=== PATIENT | female | born 1960 | race Caucasian/White ===

== ENCOUNTER → 2016-11-05 | Outpatient (REF) | payer OTHER ==
[~2016-11-05] MED LIST: AMIT24CA5 PO; BACL-67 PO; BENA25CA2 PO; BENA25TA4 PO; CALC600T21 PO; CELE20TA PO; DESYREL PO; DICL13PA TD; DOCU10CA PO; GABA-283 PO; HYDR-3713 PO; MAXA5TAB11 PO; MIRA3350 PO; MULTCAP PO; MYCOSTATIN SS; NEUR300C PO; NORCOTAB PO; TOPA100T8 PO; TRAZ50TA4 PO; VITA10002 PO; ZOFR4TAB3 PO; ZOFR8TAB PO; [UNRECOGNIZED DRUG - CODE] PO; [UNRECOGNIZED DRUG - OTHER] OR; imitrex OR; vicodin OR
== END ==
LOC: M SFHCLERA 13:34
PROVIDERS: ATTEND Nurse Practitioner Family
DX: J06.9 Acute upper respiratory infection, unspecified (principal)

== ENCOUNTER → 2017-12-12 | Outpatient (REF) | payer OTHER ==
[2017-12-12 16:07] LABS: FREE T4 1.15 NG/DL (0.76-1.46)
[2017-12-12 16:07] LABS: THYROID STIMULATING HORMONE 0.571 uIU/ML (0.358-3.740)
== END ==
LOC: M LABDRAW1 14:23
DX: R94.6 Abnormal results of thyroid function studies (principal)

== ENCOUNTER → 2018-01-18 | Outpatient (REF) | payer OTHER | LOC: M LAB REF 11:49 | DX: E04.2 Nontoxic multinodular goiter (principal) ==

== ENCOUNTER → 2018-08-27 | Outpatient (CLI) | payer OTHER ==
[~2018-08-27] MED LIST changes: -AMIT24CA5 PO; +AMIT24CA7 PO; -BACL-67 PO; +BACL1TAB9 PO; -CALC600T21 PO; +CALC600T60 PO; -GABA-283 PO; +GABA-845 PO; +TOPA100T12 PO; -TOPA100T8 PO; +TRAZ-160 PO; -TRAZ50TA4 PO; +ZOFR4TAB14 PO; -ZOFR4TAB3 PO; -ZOFR8TAB PO; +ZOFR8TAB24 PO
--- NOTE | 2018-08-27 13:56 | REP ---
Clinical: Pain to the fifth toe Technique: AP, lateral, bilateral oblique views right foot . Findings: Subtle nondisplaced transverse fracture involving the distal aspect of the fifth toe proximal phalanx. Remainder examination appears normal. Impression: Subtle nondisplaced transverse fracture involving the proximal phalanx fifth toe. Electronically Signed by Lm Martinez MD 08/27/2018 01:48 P
== END ==
LOC: M LRY 13:25
PROVIDERS: ATTEND Anesthesiology Pain Medicine
DX: M25.571 Pain in right ankle and joints of right foot (principal)

== ENCOUNTER → 2019-01-21 | Outpatient (CLI) | payer OTHER ==
[~2019-01-21] MED LIST changes: +HYDR-3715 PO; -NORCOTAB PO; -TRAZ-160 PO; +TRAZ-252 PO
--- NOTE | 2019-01-31 09:44 | REP ---
Clinical: Possible wrist fracture. Technique: Axial noncontrast images to the bilateral wrists with coronal and sagittal re-formations. Correlation: Right wrist x-ray dated 01/16/2019 (outside institution) Findings: The osseous structures, joint spaces, and surrounding soft tissues are relatively symmetric and normal bilaterally. The questioned subtle right triquetrum fracture by x-ray likely represented a normal cleft or nutrient foramen and there is no evidence for fracture. The current examination which was performed 5 days after the x-ray shows no fracture, periosteal reaction, or significant surrounding soft tissue abnormality. Impression: Normal CT to the bilateral wrists. There is no evidence for right triquetral fracture as suspected by radiographic evaluation. Electronically Signed by Lm Martinez MD 01/31/2019 09:36 A
== END ==
LOC: M RAD 15:40
PROVIDERS: ATTEND Orthopaedic Surgery Sports Medicine
DX: S50.12XA Contusion of left forearm, initial encounter (principal); X58.XXXA Exposure to other specified factors, initial encounter; Y92.89 Other specified places as the place of occurrence of the external cause

== ENCOUNTER → 2019-10-04 | Outpatient (REF) | payer OTHER ==
[~2019-10-04] MED LIST changes: +CYAN100049 PO; -VITA10002 PO
== END ==
LOC: M SFHCLERA 11:40
PROVIDERS: ATTEND Nurse Practitioner Family
DX: R53.81 Other malaise (principal)

== ENCOUNTER → 2020-12-21 | Outpatient (CLI) | payer OTHER ==
[~2020-12-21] MED LIST changes: +GABA-283 PO; -GABA-845 PO
[2020-12-21 16:19] LABS: BASO # 0.1 10^3/uL (0.0-0.2); BASO % 1.3 % (0.0-1.0); EOS # 0.1 10^3/uL (0.0-0.5); EOS % 2.4 % (0.0-3.0); HEMATOCRIT 41.4 % (36.0-47.0); HEMOGLOBIN 13.5 g/dl (12.0-15.5); LYMPH # 1.6 10^3/uL (1.5-5.0); LYMPH % 29.7 % (24.0-44.0); MEAN CORPUSCULAR HEMOGLOBIN 30.5 pg (27.0-33.0); MEAN CORPUSCULAR HGB CONC 32.6 g/dl (32.0-36.5); MEAN CORPUSCULAR VOLUME 93.7 fl (80.0-96.0); MONO # 0.6 10^3/uL (0.0-0.8); MONO % 10.1 % (2.0-8.0); NEUTROPHILS # 3.1 10^3/uL (1.5-8.5); NEUTROPHILS % 56.1 % (36.0-66.0); PLATELET COUNT, AUTOMATED 314 10^3/uL (150-450); RED BLOOD COUNT 4.42 10^6/uL (4.00-5.40); WHITE BLOOD COUNT 5.5 10^3/uL (4.0-10.0)
[2020-12-21 16:49] LABS: ERYTHROCYTE SEDIMENTATION RATE 8 mm/hr (0-30)
[2020-12-23 14:09] LABS: Lyme Disease IgG/IgM Antibodie <0.91 ISR (0.00-0.90); Lyme Disease IgM Ab Quantitati <0.80 index (0.00-0.79)
== END ==
LOC: M WUC 14:54
PROVIDERS: ATTEND Physician Assistant
DX: S40.861A Insect bite (nonvenomous) of right upper arm, initial encounter (principal); M79.10 Myalgia, unspecified site; X58.XXXA Exposure to other specified factors, initial encounter; Y92.9 Unspecified place or not applicable

== ENCOUNTER 2021-02-16 10:38 | Inpatient (IN) | payer OTHER ==
[~2021-02-16] VITALS: Ht 175.3 cm; Wt 75.5 kg
[2021-02-16 12:25] LABS: HEMOGLOBIN 14.5 g/dl (12.0-15.5); MEAN CORPUSCULAR HEMOGLOBIN 30.9 pg (27.0-33.0); MEAN CORPUSCULAR HGB CONC 33.7 g/dl (32.0-36.5); MEAN CORPUSCULAR VOLUME 91.7 fl (80.0-96.0); RED BLOOD COUNT 4.69 10^6/uL (4.00-5.40); WHITE BLOOD COUNT 5.2 10^3/uL (4.0-10.0)
[2021-02-16 12:52] LABS: ALBUMIN 3.9 GM/DL (3.2-5.2); ALT/SGPT 18 U/L (12-78); BILIRUBIN,DIRECT 0.1 MG/DL (0.0-0.2); BILIRUBIN,TOTAL 0.6 MG/DL (0.2-1.0); BLOOD UREA NITROGEN 11 MG/DL (7-18); CALCIUM LEVEL 9.2 MG/DL (8.8-10.2); CARBON DIOXIDE LEVEL 31 MEQ/L (21-32); CHLORIDE LEVEL 102 MEQ/L (98-107); CREATININE FOR GFR 0.85 MG/DL (0.55-1.30); GLOMERULAR FILTRATION RATE > 60.0 (>45); GLUCOSE, FASTING 84 MG/DL (70-100); LIPASE 62 U/L (73-393); POTASSIUM SERUM 3.9 MEQ/L (3.5-5.1); SODIUM LEVEL 137 MEQ/L (136-145); TOTAL PROTEIN 8.1 GM/DL (6.4-8.2)
[2021-02-16 13:05] LABS: PLATELET COUNT, AUTOMATED 161 10^3/uL (150-450)
[2021-02-16 13:07] LABS: BASOPHILS 2 % (0-1); EOSINOPHILS 1 % (0-3); LYMPHOCYTES 11 % (16-44); MONOCYTES 12 % (0-5); NEUTROPHILS 74 % (28-66); PLATELET ESTIMATE NORMAL (NORMAL)
[2021-02-16] MEDS ORDERED: NS 1,000 ML IV ONE ×3 (14:20→19:15)
[2021-02-16] MEDS ORDERED: ONDANSETRON 4MG/2ML VIAL IV ONE (14:20)
[2021-02-16] MEDS ORDERED: fentaNYL 100 MCG/2 ML INJECTION (J3010) IV ONE (14:20)
--- NOTE | 2021-02-16 15:08 | REP ---
INDICATION: RUQ pain, N/V/D. COMPARISON: None. TECHNIQUE: Real-time sonographic evaluation of right upper quadrant performed. FINDINGS: The gallbladder demonstrates no evidence of intraluminal sludge or calculi, wall thickening or pericholecystic fluid. There is no intrahepatic or extrahepatic biliary dilatation, common bile duct measures 4 mm in maximum diameter. The liver demonstrates homogeneous echotexture with no gross mass. The pancreas demonstrates homogeneous echotexture with no gross mass. The right kidney demonstrates no hydronephrosis, with a normal size of 10.1 cm in length. No free fluid is seen. IMPRESSION: Negative right upper quadrant ultrasound. <Electronically signed by Herbert Lopez > 02/16/21 [id number]
[2021-02-16] MEDS ORDERED: ISOVUE-370 76% 100ML VIAL As Ordered ONE (15:17)
--- NOTE | 2021-02-16 15:51 | REP ---
INDICATION: RUQ pain, n/v, neg US COMPARISON: Ultrasound today, CT 10/09/2009. TECHNIQUE: CT Scan of the abdomen and pelvis was performed with intravenous administration of 100 cc of Isovue 370, without oral contrast. Sagittal and coronal reconstruction images are performed. FINDINGS: Lung bases: Unremarkable. Liver: Normal Gallbladder: Unremarkable. Spleen: There is 9 mm cyst or hemangioma in the posterior spleen.. Adrenals: Normal. Pancreas: Normal. Kidneys: Normal. Small and large bowel: A segment of the distal ileum is thickened. This is proximal to the terminal ileum. This is most consistent with enteritis and inflammation. Several small bowel loops just proximal to this thickened segment are mildly dilated with fluid suggesting a partial obstruction. There is no free air. There is sigmoid diverticulosis without acute diverticulitis. Free fluid: There is mild free fluid in the pelvis. Abdominal aorta: No aneurysm or dissection. Adenopathy: None. Appendix: Not inflamed. Osseous structures: There are degenerative changes without compression deformity. Pelvis: No mass. Prior hysterectomy. IMPRESSION: A segment of distal ileum is thickened compatible with enteritis/ileitis. Mild dilatation of several small bowel loops immediately proximal to this suggesting a partial small bowel obstruction. Mild free fluid in the pelvis. Sigmoid diverticulosis without acute diverticulitis. <Electronically signed by Herbert Lopez > 02/16/21 [id number]
[2021-02-16 16:16] LABS: APPEARANCE, URINE CLEAR (CLEAR); BACTERIA, URINE AUTO NEGATIVE (NEGATIVE); BILIRUBIN, URINE AUTO NEGATIVE (NEGATIVE); BLOOD, URINE BLOOD 1+ (NEGATIVE); COLOR, URINE YELLOW (YELLOW); GLUCOSE, URINE (UA) AUTO NEGATIVE (NEGATIVE); KETONE, URINE AUTO 2+ mg/dL (NEGATIVE); LEUKOCYTE ESTERASE, URINE AUTO NEGATIVE (NEGATIVE); MUCUS, URINE SMALL (NEGATIVE); NITRITE, URINE AUTO NEGATIVE (NEGATIVE); PROTEIN, URINE AUTO 1+ mg/dL (NEGATIVE); RBC, URINE AUTO 4 /HPF (0-3); SPECIFIC GRAVITY URINE AUTO 1.033 (1.002-1.035); SQUAMOUS EPITHELIAL CELL UR AU 0 /HPF (0-6); UROBILINOGEN, URINE AUTO 0.2 mg/dL (0.0-2.0); WBC, URINE AUTO 1 /HPF (0-3)
[2021-02-16] MEDS ORDERED: BACL1TAB9 PO (16:37)
[2021-02-16] MEDS ORDERED: HYDR-3719 PO (16:37)
[2021-02-16] MEDS ORDERED: QUET100T2 PO (16:37)
[2021-02-16] MEDS ORDERED: ZOFR4TAB16 PO (16:37)
[2021-02-16] MEDS ORDERED: RIZA10TA58 SL (16:37)
[2021-02-16] MEDS ORDERED: METOPROLOL TART 25 MG TABLET PO SCH (18:00)
[2021-02-16] MEDS ORDERED: MAALOX 30 ML SUSP *UDC PO PRN (19:00)
[2021-02-16] MEDS ORDERED: ONDANSETRON 4MG/2ML VIAL IV SCH (19:00)
[2021-02-16] MEDS ORDERED: NS 1,000 ML IV SCH (19:00)
[2021-02-16] MEDS ORDERED: MOM 30ML SUSPENSION UDC PO PRN (19:00)
[2021-02-16] MEDS ORDERED: MORPHINE 4 MG/ML 1ML VIAL/SYRINGE (J2270) IV PRN (19:30)
--- NOTE | 2021-02-16 19:51 | HPEPDOC ---
[facility] Medical History & Physical Date of Admission Feb 16, 2021 Date of Service: Feb 16, 2021 History and Physical Hospitalist Attending Physician Addendum to History and Physical Examination: A/P: 60 y/o F w PMH significant for Diverticulitis, H. pylori, migraine, DJD presented with c/o n/v/ruq abd pain since Monday w one episode of green-colored loose BM on Monday w/o fever chills bloody stools. In the ER, she had no fever, leukocytosis, with normal liver function tests, negative ruq abd ultrasound, but ct abd pelvis: enteritis/colitis. General Surgeon second mate, Dr. Moran, reviewed the CT abd and did not think that the patient has a partial sbo. Pt is admitted to [facility] as an inpatient for two midnights for the following acute issues: Acute Enteritis/Colitis HTN, uncontrolled secondary to pain H/o Migraines DJD -npo tonight.Liquid diet for breakfast and advance as tolerated. IVFluids, anti- emetics, PPI. case discussed w Dr. Moran, and no formal consult unless pt develops worsening signs of partial sbo. He recommends re-consulting in am if symptoms of sbo occur. -no empiric abx since pt had no leukocytosis, or fever. if tmax 100.4 or higher, leukocytosis, bandemia, lactic acidosis, elevated procalcitonin, empiric cipro and flagyl due to PCN allergy may be given. repeat abd xray in am if pt develops abd distention and decreased flatus to monitor for partial sbo. -prn pain meds. metoprolol for sbp>130. Vital Signs Vital Signs Date Time Temp Pulse Resp B/P (MAP) Pulse Ox O2 Delivery O2 Flow Rate FiO2 02/16/21 19:31 02/16/21 19:31 99.4 72 16 99 02/16/21 10:39 Room Air Laboratory Data Labs 24H Laboratory Tests 2 02/16/21 11:08: Neutrophils (%) (Auto) , Nucleated Red Blood Cells % (auto) 0.0, Neutrophils 74H, Lymphocytes (Manual) 11L, Monocytes (Manual) 12H, Eosinophils (Manual) 1, Basophils (Manual) 2H, Red Blood Cell Morphology NORMAL, Platelet Estimate NOR MAL, Anion Gap 4L, Glomerular Filtration Rate > 60.0, Calcium Level 9.2, Total Bilirubin 0.6, Direct Bilirubin 0.1, Gamma Glutamyl Transferase 6, Aspartate Amino Transf (AST/SGOT) 16, Alanine Aminotransferase (ALT/SGPT) 18, Alkaline Phosphatase 63, Total Protein 8.1, Albumin 3.9, Albumin/Globulin Ratio 0.9L, Lipase 62L 02/16/21 15:51: Urine Color YELLOW, Urine Appearance CLEAR, Urine pH 5.0, Urine Specific [place] 1.033, Urine Protein 1+H, Urine Glucose (Auto)(UA) NEGATIVE, Urine Ketones (Auto) 2+H, Urine Blood 1+H, Urine Nitrite NEGATIVE, Urine Bilirubin NEGATIVE, Urine Urobilinogen 0.2, Urine Leukocyte Esterase (Auto) NEGATIVE, Urine WBC (Auto) 1, Urine RBC (Auto) 4H, Urine Hyaline Casts (Auto) 0, Urine Bacteria (Auto) NEGATIVE, Urine Squamous Epithelial Cells 0, Urine Mucus (Auto) SMALL, Urine Sperm (Auto) CBC/BMP Laboratory Tests 02/16/21 11:08 Microbiology Microbiology 02/16/21 Respiratory Virus Panel (PCR) (TIARA) - Final, Complete Home Medications Scheduled Baclofen (Baclofen) 20 Mg Tab, 20 MG PO TID Gabapentin (Neurontin) 300 Mg Cap, 600 MG PO TID Quetiapine Fumarate (Quetiapine Fumarate) 100 Mg Tablet, 50 MG PO QHS Scheduled PRN Baclofen (Baclofen) 20 Mg Tablet, 20 MG PO DAILY PRN for SPASMS Hydrocodone/Acetaminophen (Hydrocodone-Acetamin 10-325 mg) 1 Each Tablet, 1 TAB PO Q4H PRN for PAIN LEVEL 5-10 Ondansetron HCl (Zofran) 4 Mg Tablet, 4 MG PO BID PRN for MIGRAINE Rizatriptan Benzoate (Rizatriptan) 10 Mg Tab.rapdis, 10 MG SL BID PRN for MIGRAINE Allergies Coded Allergies: Penicillins (Verified Allergy, Intermediate, swelling, 02/16/21) aspirin (Verified Allergy, Intermediate, swelling, 02/16/21) Sulfa (Sulfonamide Antibiotics) (Verified Adverse Reaction, Intermediate, "sick", 02/16/21) A-FIB/CHADSVASC A-FIB History Current/History of A-Fib/PAF?: No Current PO Anticoag Therapy: No Age/Risk Factor Scoring CHADSVASC: CHADSVASC Response (Comments) Value Age Risk Factor Age < 65 years old 0 Gender Risk Factor Female 1 Hx of CHF No 0 Hx of HTN No 0 Hx of Stroke/TIA/or VTE No 0 Hx of Diabetes No 0 Hx of Vascular Disease No 0 Total 1 Treatment Treatment ordered: NONE DRU NAM MD Feb 16, 2021 19:51
[2021-02-16] MEDS ORDERED: SIMETHICONE 80MG CHEW TAB PO PRN (20:40)
[2021-02-16] MEDS ORDERED: METOCLOPRAMIDE INJ 10MG/2ML VIAL (J2765 PER 1) IV ONE (20:40)
[2021-02-16] MEDS ORDERED: MORPHINE 4 MG/ML 1ML VIAL/SYRINGE (J2270) IV ONE (20:40)
[2021-02-16] MEDS: BACLOFEN 10 MG TAB PO SCH (21:45)
[2021-02-16] MEDS: ONDANSETRON 4MG/2ML VIAL IV SCH (21:46)
[2021-02-16] MEDS: GABAPENTIN 300 MG CAP PO SCH (21:50)
[2021-02-16] MEDS: DOCUSATE SODIUM 100MG CAPSULE PO SCH (21:50)
[2021-02-16] MEDS: QUEtiapine FUMARATE 50MG TAB PO SCH (21:51)
[2021-02-16 22:08] VITALS: BP 156/78
--- NOTE | 2021-02-16 22:32 | HPEPDOC ---
General Date of Admission 02/16/21 Date of Service: Feb 16, 2021 Attending Physician: DRU NAM MD Chief Complaint The patient is a 60-year-old female admitted with a reason for visit of Faustino fierro. Source: Patient Exam Limitations: No limitations Timing/Duration: Constant, Intermittent Severity: Moderate Associated Symptoms: Nausea, Vomiting History of Present Illness Mrs. De Guzman is a 60 year old white female with significant PMH of migraines, diverticulosis, H. pylori, DJD presented with c/o nausea, RUQ abd pain since Monday with one episode of green-colored loose BM on Monday w/o fever chills bloody stools. She endorses generalized fatigue past week and constipation (which she stopped taking Amitiza for) at baseline; but no other complaints since onset of "burping" Monday while eating a cheeseburger and then came RUQ pain and constant nausea. She reports no one else with similar symptoms who had the same dinner as her. She reports she still has her gallbladder. She denies heartburn, but describes burping sensation with the pressure pain of the RUQ. She reports 4/10 pain, when feeling the sensation of burping pain increases to 8/10 then decreases post burp to 4/10. Afebrile, without leukocytosis or elevated LFTs upon presentation. Negative RUQ abd ultrasound, but CT abd pelvis: + enteritis/colitis. General Surgeon adult secondary education instructor, Dr. Moran, reviewed the CT abd and did not think that the patient has partial sbo. Pt will be admitted to [facility] to further address presenting concerns. Home Medications Scheduled Baclofen (Baclofen) 20 Mg Tab, 20 MG PO TID, (Reported) Gabapentin (Neurontin) 300 Mg Cap, 600 MG PO TID, (Reported) Quetiapine Fumarate (Quetiapine Fumarate) 100 Mg Tablet, 50 MG PO QHS, (Reported) Scheduled PRN Baclofen (Baclofen) 20 Mg Tablet, 20 MG PO DAILY PRN for SPASMS, (Reported) Hydrocodone/Acetaminophen (Hydrocodone-Acetamin 10-325 mg) 1 Each Tablet, 1 TAB PO Q4H PRN for PAIN LEVEL 5-10, (Reported) Ondansetron HCl (Zofran) 4 Mg Tablet, 4 MG PO BID PRN for MIGRAINE, (Reported) Rizatriptan Benzoate (Rizatriptan) 10 Mg Tab.rapdis, 10 MG SL BID PRN for MIGRAINE, (Reported) Allergies Coded Allergies: Penicillins (Verified Allergy, Intermediate, swelling, 02/16/21) aspirin (Verified Allergy, Intermediate, swelling, 02/16/21) Sulfa (Sulfonamide Antibiotics) (Verified Adverse Reaction, Intermediate, "sick", 02/16/21) Past Medical History Medical History h pylori 2009, diverticulosis- last diverticulitis 2017, DJD, chronic pain, migraines Family History Significant Family History: Cancer (sister- breast CA with mets to brain; mother with unknown type of cancer) Social History * Smoker: Denies Alcohol: occationally Drugs: denies Recent Travel/Sick Contacts: Denies: Recent travel, Recent sick contacts Psychosocial History: No pertinent psych hx A-FIB/CHADSVASC A-FIB History Current/History of A-Fib/PAF?: No Review of Systems Constitutional: Reports: Fatigue Eyes: Denies: Pain, Vision change ENT: Denies: Head Aches, Ear Pain, Dysphagia Skin: Denies: Rash, Lesions, Breakdown Pulmonary: Denies: Dyspnea, Cough Cardiovascular: Denies: Chest Pain, Palpitations, Orthopnea, Paroxysmal Noc. Dyspnea, Lt Headedness Gastrointestinal: Reports: Nausea, Abdominal Pain, Diarrhea (1 episode monday ), Constipation Genitourinary: Denies: Dysuria, Frequency, Incontinence, Retention Hematologic: Denies: Bruising, Bleeding Excessively Musculoskeletal: Denies: Neck Pain, Back Pain, Joint Pain, Muscle Pain, Spasms Neurological: Denies: Weakness, Numbness, Change in speech, Confusion Psych: Reports: Mood Normal; Denies: Depression, Memory Issues Vital Signs Vital Signs Date Time Temp Pulse Resp B/P (MAP) Pulse Ox O2 Delivery O2 Flow Rate FiO2 02/16/21 15:45 16 02/16/21 12:52 02/16/21 10:39 98.6 86 99 Room Air Laboratory Data Labs 24H Laboratory Tests 2 02/16/21 11:08: Neutrophils (%) (Auto) , Nucleated Red Blood Cells % (auto) 0.0, Neutrophils 74H, Lymphocytes (Manual) 11L, Monocytes (Manual) 12H, Eosinophils (Manual) 1, Basophils (Manual) 2H, Red Blood Cell Morphology NORMAL, Platelet Estimate NORMAL, Anion Gap 4L, Glomerular Filtration Rate > 60.0, Calcium Level 9.2, Total Bilirubin 0.6, Direct Bilirubin 0.1, Gamma Glutamyl Transferase 6, Aspartate Amino Transf (AST/SGOT) 16, Alanine Aminotransferase (ALT/SGPT) 18, Alkaline Phosphatase 63, Total Protein 8.1, Albumin 3.9, Albumin/Globulin Ratio 0.9L, Lipase 62L 02/16/21 15:51: Urine Color YELLOW, Urine Appearance CLEAR, Urine pH 5.0, Urine Specific [place] 1.033, Urine Protein 1+H, Urine Glucose (Auto)(UA) NEGATIVE, Urine Ketones (Auto) 2+H, Urine Blood 1+H, Urine Nitrite NEGATIVE, Urine Bilirubin NEGATIVE, Urine Urobilinogen 0.2, Urine Leukocyte Esterase (Auto) NEGATIVE, Urine WBC (Auto) 1, Urine RBC (Auto) 4H, Urine Hyaline Casts (Auto) 0, Urine Bacteria (Auto) NEGATIVE, Urine Squamous Epithelial Cells 0, Urine Mucus (Auto) SMALL, Urine Sperm (Auto) CBC/BMP Laboratory Tests 02/16/21 11:08 Microbiology Microbiology 02/16/21 Respiratory Virus Panel (PCR) (TIARA) - Final, Complete RAD Interpretation STUDY: Ct a/p pelvis Rad Actions: Report Reviewed, Other Rad Comments: (enteritis, possible partial SBO; no diverticulitis) STUDY: RUQ Rad Actions: Report Reviewed RAD Interpretation: Normal Assessment/Plan 1. Abdominal pain, nausea 2/2 enteritis/ colitis: -Monitor patient. NPO. Symptomatic supportive care. Anticipate liquid diet for breakfast and advance as tolerated. -IV fluid hydration and scheduled antiemetics. PPI. -H pylori and GI panel. A.m. labs -Plan discussed with Dr. Moran and no formal consult unless worsening signs of partial SBO. If patient symptoms return in a.m. would reconsult. -Given patient thankfully afebrile and without leukocytosis or other systemic signs of infection we will hold off on empiric antibiotic coverage. If patient becomes febrile, lab work shows bandemia, leukocytosis, lactic acidosis or e levation in ESR or pro-Camacho; will cover with Cipro and Flagyl (taking in consideration of patient's penicillin allergy). -Abdominal x-ray in a.m. 2. Hypertension, in setting of abdominal pain: Patient denies history of hypertension. No antihypertensive medication on med rec. Anticipate pain incr easing blood pressure. Monitor patient blood pressure and plan for as needed metoprolol for systolic blood pressure greater than 130. 3. DJD, chronic back pain: Monitor patient, symptomatic supportive care. Will continue home Neurontin and baclofen with bowel regimen. If patient with worsening signs symptoms of partial SBO would hold any p.o. medications. 4. Migraines: Pt complained of minor headache during admission- did not endorse as typical migraine. She does admit to affect of nausea when she does have migraines. Monitor pt, symptom management/ supportive care. DVT prophylaxis: Renetta score low, plan for teds and SCDs CODE STATUS: Full Disposition planning: Home once tolerating p.o. and BM. Plan / VTE VTE Prophylaxis Ordered?: Yes VTE Exclusion Pharmacological: At Low Risk for VTE Plan Disposition home IVF: Continue Diet: Make NPO Activity: Continue Current Medications: Bowel Regimen Diagnostics: Repeat Labs in AM Anticipated Discharge: Home MERCED SERNA NP Feb 16, 2021 19:22
[2021-02-16] MEDS: D5W/0.45% SODIUM CHLORIDE 1,000 ML IV SCH (23:02)
[2021-02-17] MEDS: ONDANSETRON 4MG/2ML VIAL IV SCH ×4 (03:25→22:00)
[2021-02-17] MEDS: NORCO, ANEXSIA 5/325MG TABLET (HYDROcodone/ACETAMINOPHEN) PO PRN ×2 (03:26→19:30)
[2021-02-17 03:30] VITALS: BP 127/71
--- NOTE | 2021-02-17 05:13 | ECGEPIP ---
[facility] - ED Test Date: 2021-02-16 Pat Name: CALDERON DOAN Department: Room: - Gender: Female Sash Maker: tb : 1960 Requested By: Will Dowell Order Number: [id number] Reading MD: Will Castillo Measurements Intervals [place] Rate: 100 P: [place]: 166 QRS: 114 QRSD: 84 T: 50 QT: 320 QTc: 412 Interpretive Statements Normal sinus rhythm RIGHT AXIS DEVIATION NONSPECIFIC T WAVE ABNORMALITY(S) NO PRIORS FOR COMPARISON Electronically Signed on 02-17-2021 5:13:15 EDT by Will Castillo
[2021-02-17] MEDS: D5W/0.45% SODIUM CHLORIDE 1,000 ML IV SCH ×3 (05:15→23:22)
[2021-02-17 05:44] LABS: HEMATOCRIT 32.8 % (36.0-47.0); MEAN CORPUSCULAR HEMOGLOBIN 31.1 pg (27.0-33.0); MEAN CORPUSCULAR HGB CONC 33.8 g/dl (32.0-36.5); MEAN CORPUSCULAR VOLUME 91.9 fl (80.0-96.0); PLATELET COUNT, AUTOMATED 187 10^3/uL (150-450); RED BLOOD COUNT 3.57 10^6/uL (4.00-5.40); WHITE BLOOD COUNT 3.4 10^3/uL (4.0-10.0)
[2021-02-17 05:46] LABS: HEMOGLOBIN 11.1 g/dl (12.0-15.5)
[2021-02-17 06:00] VITALS: BP 110/56
[2021-02-17 06:11] LABS: ALBUMIN 2.8 GM/DL (3.2-5.2); ALT/SGPT 12 U/L (12-78); BILIRUBIN,TOTAL 0.3 MG/DL (0.2-1.0); BLOOD UREA NITROGEN 7 MG/DL (7-18); CALCIUM LEVEL 7.3 MG/DL (8.8-10.2); CARBON DIOXIDE LEVEL 27 MEQ/L (21-32); CHLORIDE LEVEL 111 MEQ/L (98-107); CREATININE FOR GFR 0.63 MG/DL (0.55-1.30); GLOMERULAR FILTRATION RATE > 60.0 (>45); GLUCOSE, FASTING 95 MG/DL (70-100); POTASSIUM SERUM 3.5 MEQ/L (3.5-5.1); SODIUM LEVEL 143 MEQ/L (136-145); TOTAL PROTEIN 5.5 GM/DL (6.4-8.2)
--- NOTE | 2021-02-17 09:07 | REP ---
INDICATION: abd pain r/o sbo. COMPARISON: CT 02/16/2021 TECHNIQUE: AP supine FINDINGS: There is gas the from the cecum through splenic flexure in nondilated colon. Scattered small amounts of gas in small bowel loops without dilatation. Rectosigmoid shows scattered stool and gas. There are a few pelvic phleboliths. There are no abnormal calcifications over the renal fossa the or expected course of the ureters. Degenerative disc changes at L5-S1, bones otherwise unremarkable. IMPRESSION: One nonspecific gas pattern. There are no dilated loops, masses or signs of obstruction. Few pelvic phleboliths noted. No definite evidence for urinary tract calcifications. Bones with only minimal degenerative change at L5-S1, otherwise unremarkable. <Electronically signed by Dank Cuellar > 02/17/21 0920
[2021-02-17] MEDS: PANTOPRAZOLE 40MG VIAL (C9113 PER 1) IV SCH (09:52)
[2021-02-17] MEDS: GABAPENTIN 300 MG CAP PO SCH ×3 (09:52→22:19)
[2021-02-17] MEDS: BACLOFEN 10 MG TAB PO SCH ×3 (09:53→22:19)
[2021-02-17] MEDS: DOCUSATE SODIUM 100MG CAPSULE PO SCH ×2 (09:53→22:19)
--- NOTE | 2021-02-17 11:35 | IPNPDOC ---
Text Note Date of Service The patient was seen on 02/17/21. NOTE Subjective Pt was seen at bedside this morning and c/o nausea and 8/10 pain in RUQ, described as a constant burning. Her abdomen is tender, and pain is worse when sitting. She admits pain has mildly decreased since yesterday d/t pain meds, but has not passed gas in approx 48 hrs. Denies fevers, vomiting, AMBRIZ, SOB, chest pain, dysuria, rigid abdomen, bruising. Objective Gen: No fever. Pt was sitting up in bed, in no acute distress, and pleasant. Psych: A+Ox3 HEENT: no cervical lymphadenopathy, no JVD. RESP: CTA b/l, no wheeze, crackles, or rhonchi. CVS: RRR, no murmur. ABD: RUQ tender to palpation, rebound tenderness present b/l w pain in RUQ. Abdomen is mildly distended w no rigidity. MSK: plantarflexion 5/5 b/l. SKIN: normal temp. no rash or edema. Imaging Abdomen,Flat Plate KUB (02/17) One nonspecific gas pattern. There are no dilated loops, masses or signs of obstruction. Few pelvic phleboliths noted. No definite evidence for urinary tract calcifications. CT ABD/PEL W/IV CONTRAST (02/16) Reported as- A segment of distal ileum is thickened compatible with enteritis/ileitis. Mild dilatation of several small bowel loops immediately proximal to this suggesting a partial small bowel obstruction. Mild free fluid in the pelvis. Sigmoid diverticulosis without acute diverticulitis. Abdomen US (02/16) Negative right upper quadrant ultrasound. Assessment Pt is a 60yo F w PMHx of migraines, diverticulosis, DJD, transverse myelitis, and H. pylori (2008). She presented yesterday afternoon w 3 day Hx of RUQ pain, nausea, and constipation. On initial evaluation she was hypertensive with systolic pressure of 164, but was afebrile, with no leukocytosis or LFT abnormalities. Imaging yesterday showed evidence of distal SB inflammation, with proximal dilation, and partial SBO could not be ruled out. Pt was admitted for sx management and further evaluation. Plan 1. Partial small bowel obstruction with entritis Abdominal US showed no gallstones and normal CBD. CT of abdomen showed inflammation and dilatation of distal SB, a partial small bowel obstruction cannot be ruled out. Pt will remain NPO for gut rest. We will start ciprofloxacin 400mg-(200ml @ 200mls/hr) IV [id number] had QTc of 412 and we are aware she is on Seroquel at home. We will start Flagyl 500mg- (100ml @100mls/hr) IV Q8H. Immunology for atypical pANCA, ALCA IgG, AMCA IgG, and ACCA IgA pending--will evaluate for indication of Crohn's or other IBDs. Will continue acetaminophen 650mg PO Q4H PRN for mild pain or fever. Will continue [place] 2 tab PO Q6H PRN for moderate pain. Will continue morphine 4mg Q2HP IV PRN for severe pain. If symptoms worsen, we will contact surgery. 2. Nausea Will continue ondansetron 4mg IV Q6H PRN. Will continue Phenergan 12.5mg IV Q6H PRN. 3. Reflux/Dyspepsia Will continue Protonix 40mg IV daily. Will continue Mylanta 30ml daily PO PRN. 4. Constipation/Gas pain Will continue Colace 100mg PO BID. Will continue Mylicon 80mg Q6HP PO PRN for gas pain. Will continue MgOH 30ml daily PO PRN for constipation. 5. HTN on arrival Pt's HTN resolved after Metoprolol yesterday and has remained stable. We will continue Metoprolol 25mg Q6HP PRN PO if systolic BP >130. 6. Drop in Hemoglobin H+H this morning at 11.1, 32.8 (approx 3pt drop in Hgb from day 1) WBC also dec to 3.4 today. Likely because of the fluids we administered- giving dextrose/NaCl 1000ml @ 100mls/hr IV Q10H. Will continue to monitor H+H. 7. DJD, chronic back pain Will continue home dose of Gabapentin 600mg PO TID Will continue home dose of Baclofen 20mg PO TID. 8. Difficulty sleeping Will continue home dose Seroquel 50mg QHS PO. 9. DVT Prophylaxis We will continue with TEDs and sequentials. Disposition: If patient has any worsening of symptoms, such as increase in RUQ pain, vomiting, rigid abdomen, we will consider NG tube placement, and calling surgery for evaluation. VS,Fishbone, I+O VS, Fishbone, I+O Laboratory Tests 02/17/21 05:28 Vital Signs Date Time Temp Pulse Resp B/P (MAP) Pulse Ox O2 Delivery O2 Flow Rate FiO2 02/17/21 08:44 18 02/17/21 06:00 97.0 67 110/56 (74) 98 Room Air I&O- Last 24 Hours up to 6 AM 02/17/21 06:00 Intake Total 2800 ml Output Total 400 ml Balance 2400 ml GME ATTESTATION GME ATTESTATION My faculty preceptor for this patient encounter was physically present during the encounter and was fully available. All aspects of the patient interview, examination, medical decision making process, and medical care plan development were reviewed and approved by the faculty preceptor. The faculty preceptor is aware and concurs with the plan as stated in the body of this note and will attest to such by his/her cosignature. ATTENDING NOTE I, Jeffrey Anotine MD, have independently examined this patient and performed my own physical exam, as well as reviewed the documentation and edited where necessary. I have discussed in detail with the resident / student the findings and plan of treatment as documented by the resident / student and edited their note. I agree with their findings and treatment plan and have edited their documentation. AMMON CHACKO OMS-3 Feb 17, 2021 11:35 JEFFREY ANTOINE MD Feb 18, 2021 12:43
[2021-02-17] MEDS: CIPROFLOXACIN 400 MG in IV 1 EA IV SCH ×2 (12:29→23:23)
[2021-02-17] MEDS: ACETAMINOPHEN TAB 650MG DOSE (2X325MG) PO PRN (12:36)
[2021-02-17 13:13] LABS: H PYLORI QUALITATIVE IgG NEGATIVE (NEGATIVE)
[2021-02-17] MEDS: metroNIDAZOLE 500 MG in IV 1 EA IV SCH ×2 (13:41→22:42)
[2021-02-17] MEDS: PROMETHAZINE INJ 25 MG/ML VIAL (J2550) IV PRN ×2 (13:41→20:15)
[2021-02-17 14:00] VITALS: BP 126/89
[2021-02-17] MEDS: QUEtiapine FUMARATE 50MG TAB PO SCH (22:19)
[2021-02-17 22:22] VITALS: BP 134/67
[2021-02-18] MEDS: metroNIDAZOLE 500 MG in IV 1 EA IV SCH ×3 (05:26→20:49)
[2021-02-18] MEDS: ONDANSETRON 4MG/2ML VIAL IV SCH ×4 (05:26→22:02)
[2021-02-18] MEDS: METOPROLOL TART 25 MG TABLET PO PRN ×3 (05:57→18:15)
[2021-02-18 06:00] VITALS: BP 153/75
[2021-02-18 07:08] LABS: HEMATOCRIT 34.4 % (36.0-47.0); HEMOGLOBIN 11.4 g/dl (12.0-15.5); MEAN CORPUSCULAR HEMOGLOBIN 30.6 pg (27.0-33.0); MEAN CORPUSCULAR HGB CONC 33.1 g/dl (32.0-36.5); MEAN CORPUSCULAR VOLUME 92.2 fl (80.0-96.0); PLATELET COUNT, AUTOMATED 189 10^3/uL (150-450); RED BLOOD COUNT 3.73 10^6/uL (4.00-5.40)
[2021-02-18 07:35] LABS: BLOOD UREA NITROGEN 4 MG/DL (7-18); CALCIUM LEVEL 8.4 MG/DL (8.8-10.2); CARBON DIOXIDE LEVEL 30 MEQ/L (21-32); CHLORIDE LEVEL 109 MEQ/L (98-107); CREATININE FOR GFR 0.69 MG/DL (0.55-1.30); GLOMERULAR FILTRATION RATE > 60.0 (>45); GLUCOSE, FASTING 95 MG/DL (70-100); POTASSIUM SERUM 3.6 MEQ/L (3.5-5.1); SODIUM LEVEL 143 MEQ/L (136-145)
[2021-02-18 07:36] LABS: ALBUMIN 2.9 GM/DL (3.2-5.2); ALT/SGPT 14 U/L (12-78); BILIRUBIN,TOTAL 0.3 MG/DL (0.2-1.0); TOTAL PROTEIN 6.2 GM/DL (6.4-8.2)
[2021-02-18] MEDS: BACLOFEN 10 MG TAB PO SCH ×3 (08:44→20:48)
[2021-02-18] MEDS: DOCUSATE SODIUM 100MG CAPSULE PO SCH ×2 (08:44→20:43)
[2021-02-18] MEDS: GABAPENTIN 300 MG CAP PO SCH ×3 (08:44→20:43)
[2021-02-18] MEDS: PANTOPRAZOLE 40MG VIAL (C9113 PER 1) IV SCH (09:09)
--- NOTE | 2021-02-18 09:42 | IPNPDOC ---
Text Note Date of Service The patient was seen on 02/18/21. NOTE Subjective Pt was seen at bedside this morning and admits abdominal pain has decreased to 3/10 while laying flat, and is exacerbated with sitting, which also worsens nausea. She admits to a mild AMBRIZ. She had an episode of urinary incontinence overnight and also produced one small stool. Pt also passed gas once over night. Denies fevers, vomiting, SOB, chest pain, dysuria, or bruising. Objective Gen: Pt is more comfortable while lying flat, in no acute distress, and pleasant. Psych: A+Ox3 HEENT: no cervical lymphadenopathy. RESP: CTA b/l, no wheeze, crackles, or rhonchi. CVS: RRR, no murmur. ABD: RUQ significantly tender to light palpation w rebound tenderness present b/l w pain in RUQ. Abdomen is mildly distended (no change from yesterday) and mild gaurding is present. MSK: plantarflexion 5/5 b/l. SKIN: No rash or edema. Imaging Abdomen,Flat Plate KUB (02/17) One nonspecific gas pattern. There are no dilated loops, masses or signs of obstruction. Few pelvic phleboliths noted. No definite evidence for urinary tract calcifications. CT ABD/PEL W/IV CONTRAST (02/16) Reported as- A segment of distal ileum is thickened compatible with enteritis/ileitis. Mild dilatation of several small bowel loops immediately proximal to this suggesting a partial small bowel obstruction. Mild free fluid in the pelvis. Sigmoid diverticulosis without acute diverticulitis. Abdomen US (02/16) Negative right upper quadrant ultrasound. Assessment Pt is a 60yo F w PMHx of migraines, diverticulosis, DJD, transverse myelitis, and H. pylori (2008). She presented yesterday afternoon w 3 day Hx of RUQ pain, nausea, and constipation. On initial evaluation she was hypertensive with systolic pressure of 164, but was afebrile, with no leukocytosis or LFT abnormalities. Imaging yesterday showed evidence of distal SB inflammation, with proximal dilation, and partial SBO could not be ruled out. Pt was admitted for sx management and further evaluation. Plan 1. RUQ Pain No gallstones and normal CBD evident on US. CT of abdomen showed inflammation and dilatation of distal ileum, potential concern for SBO. Pt is NPO for gut rest. Will continue w ciprofloxacin 400mg-(200ml @ 200mls/hr) IV [id number] had QTc of 412 and we are aware she is on Seroquel at home. Will continue w Flagyl 500mg- (100ml @100mls/hr) IV Q8H. Acetaminophen 650mg PO Q4H PRN being given for mild pain. [place] 2 tab PO Q6H PRN being given for moderate pain. Morphine 4mg Q2HP IV PRN being given for severe pain. Partial small bowel obstruction: -Patient is kept n.p.o., will continue to keep her n.p.o. today as well. -We will continue ciprofloxacin and Flagyl antibiotics prophylactically. 2. Nausea Ondansetron 4mg IV Q6H PRN and Phenergan 12.5mg IV Q6H PRN will be continued. 3. Reflux/Dyspepsia Protonix 40mg IV daily and Mylanta 30ml daily PO PRN will be continued. 4. Constipation/Gas pain The following are being given for sx management: Colace 100mg PO BID. Mylicon 80mg Q6HP PO PRN for gas pain. MgOH 30ml daily PO PRN for constipation. 5. HTN on arrival BP has been stable over 48hrs. If SBP rises over 130, Metoprolol 25mg Q6HP PRN PO. 6. DJD, chronic back pain The following are being given for sx management (consistent w home doses): Gabapentin 600mg PO TID Baclofen 20mg PO TID. 7. Difficulty sleeping Pt is being give home dose of Seroquel 50mg QHS PO. 8. DVT Prophylaxis Will start Heparin SC given that she would not need surgery at this point of time. Disposition: Patient has passed gas, if she continues to do so and her bowels are moving and all her symptoms resolved. She would be able to go home in a day or 2. VS,Fishbone, I+O VS, Fishbone, I+O Laboratory Tests 02/18/21 06:53 Vital Signs Date Time Temp Pulse Resp B/P (MAP) Pulse Ox O2 Delivery O2 Flow Rate FiO2 02/18/21 06:00 97.7 63 16 153/75 (101) 95 Room Air I&O- Last 24 Hours up to 6 AM 02/18/21 06:00 Intake Total 1950 ml Output Total 2400 ml Balance -450 ml AMMON CHACKO OMS-3 Feb 18, 2021 09:42 Noemy Malloy MD Feb 18, 2021 19:12
[2021-02-18] MEDS: D5W/0.45% SODIUM CHLORIDE 1,000 ML IV SCH (12:12)
[2021-02-18] MEDS: CIPROFLOXACIN 400 MG in IV 1 EA IV SCH (12:12)
[2021-02-18 12:13] VITALS: BP 140/75
[2021-02-18] MEDS: HEPARIN SOD (PORCINE) 5000UNITS/ML 1ML VIAL/SYRINGE SQ SCH ×2 (12:13→20:50)
[2021-02-18] MEDS ORDERED: GI COCKTAIL 50ML BTL(HYOSCYAMINE/MAALOX/LIDOCAINE VISCOUS)(1:3:1) PO ONE (12:30)
[2021-02-18] MEDS: ACETAMINOPHEN TAB 650MG DOSE (2X325MG) PO PRN (13:28)
[2021-02-18] MEDS: PROMETHAZINE INJ 25 MG/ML VIAL (J2550) IV PRN (13:29)
[2021-02-18 14:00] VITALS: BP 140/68
[2021-02-18 22:00] VITALS: BP 132/86
[2021-02-18] MEDS: QUEtiapine FUMARATE 50MG TAB PO SCH (22:02)
[2021-02-18] MEDS ORDERED: NITROGLYCERIN 0.4 MG SUBL TABLET SL PRN (23:55)
[2021-02-19] MEDS: CIPROFLOXACIN 400 MG in IV 1 EA IV SCH ×3 (00:32→23:59)
[2021-02-19] MEDS: PROMETHAZINE INJ 25 MG/ML VIAL (J2550) IV PRN (00:37)
[2021-02-19 00:45] LABS: CK-MB VALUE MASS < 1.0 NG/ML (<3.6); CPK CREATINE PHOSPHOKINASE 59 U/L (26-192); MB/CK RELATIVE INDEX 1.69 (< OR =4); TROPONIN I < 0.02 NG/ML (< 0.10)
--- NOTE | 2021-02-19 03:11 | IPNPDOC ---
Text Note Date of Service The patient was seen on 02/19/21. NOTE Pt seen with reported new cp after she reports a pleasant phone call with loved one. She described sudden CP 7-8/10 pressure left sided radiating around left breast with associated SOB and bilateral hand tingling. She "waited for it to get better but then called since it stayed". Pt denies hx of stents. Does admit to hx of cp several years ago with described baseline murmur and arrhythmia history. SHe describes as taking nitro in past when "heart out of rhythm". Pt a/ox3, does demonstrate grimacing facial expression and anxious mood. Pt is tearful during parts of exam. BP 146/77, hr 76, rr 20, spo2 98% and 100% on o2 (Oxygen applied per cp protocol). CTA Regular rhythm, rate. Murmur noted. BS noted and abdomen soft, mildly tender generalized. She did report abdominal palpation worsens CP sensation. EKG NSR, questionable v3. Trop reassuringly 0.02. Pt unable to receive asa given allergy. She denied any flatus or BM today; likely GI radiating pain. She did report feeling better with oxygen. nitro SL prn , morphine prn and Gi cocktail ordered. Part of GI cocktail tolerated (pt then began getting nauseated and then required antiemetic- afterwards CP free); she did not receive nitro or morphine prior to resolution of symptoms. Plan to Monitor pt, tele, trend trop. ACS protocol. Repeat EKG with any acute changes. Nitro SL prn. Symptom management/supportive care. Will defer determination of further inpatient w/u to attending; encourage OP stress and follow up with PCP. MERCED SERNA NP Feb 19, 2021 03:11
[2021-02-19] MEDS: D5W/0.45% SODIUM CHLORIDE 1,000 ML IV SCH ×3 (03:23→17:22)
[2021-02-19] MEDS: metroNIDAZOLE 500 MG in IV 1 EA IV SCH ×3 (04:45→21:49)
[2021-02-19] MEDS: ONDANSETRON 4MG/2ML VIAL IV SCH ×4 (04:45→21:48)
[2021-02-19 06:00] VITALS: BP 136/75
[2021-02-19 06:36] LABS: HEMATOCRIT 33.8 % (36.0-47.0); HEMOGLOBIN 11.3 g/dl (12.0-15.5); MEAN CORPUSCULAR HEMOGLOBIN 30.4 pg (27.0-33.0); MEAN CORPUSCULAR HGB CONC 33.4 g/dl (32.0-36.5); MEAN CORPUSCULAR VOLUME 90.9 fl (80.0-96.0); PLATELET COUNT, AUTOMATED 230 10^3/uL (150-450); RED BLOOD COUNT 3.72 10^6/uL (4.00-5.40); WHITE BLOOD COUNT 3.6 10^3/uL (4.0-10.0)
[2021-02-19 07:00] LABS: ALBUMIN 3.1 GM/DL (3.2-5.2); ALT/SGPT 15 U/L (12-78); BILIRUBIN,TOTAL 0.3 MG/DL (0.2-1.0); BLOOD UREA NITROGEN 3 MG/DL (7-18); CARBON DIOXIDE LEVEL 31 MEQ/L (21-32); CHLORIDE LEVEL 107 MEQ/L (98-107); GLOMERULAR FILTRATION RATE > 60.0 (>45); GLUCOSE, FASTING 101 MG/DL (70-100); POTASSIUM SERUM 3.1 MEQ/L (3.5-5.1); SODIUM LEVEL 143 MEQ/L (136-145); TOTAL PROTEIN 5.8 GM/DL (6.4-8.2)
[2021-02-19] MEDS ORDERED: POTASSIUM CHLORIDE 10 MEQ SR TABLET PO ONE (09:00)
[2021-02-19 09:03] LABS: MAGNESIUM LEVEL 1.9 MG/DL (1.8-2.4)
[2021-02-19] MEDS: ACETAMINOPHEN TAB 650MG DOSE (2X325MG) PO PRN (09:30)
[2021-02-19] MEDS: PANTOPRAZOLE 40MG VIAL (C9113 PER 1) IV SCH (09:30)
[2021-02-19] MEDS: GABAPENTIN 300 MG CAP PO SCH ×3 (09:31→21:49)
[2021-02-19] MEDS: BACLOFEN 10 MG TAB PO SCH ×3 (09:31→21:48)
[2021-02-19] MEDS: HEPARIN SOD (PORCINE) 5000UNITS/ML 1ML VIAL/SYRINGE SQ SCH ×2 (09:31→21:49)
[2021-02-19] MEDS: DOCUSATE SODIUM 100MG CAPSULE PO SCH ×2 (09:32→21:48)
--- NOTE | 2021-02-19 11:36 | REP ---
INDICATION: Partial SBO. COMPARISON: 02/17/2021. TECHNIQUE: Two AP views abdomen and pelvis. FINDINGS: Once again there is air scattered throughout the GI tract in a nonspecific pattern. No significantly dilated bowel loops are visualized radiographically. Multiple phleboliths are again seen in the pelvis. IMPRESSION: Nonspecific bowel gas pattern. No radiographic evidence of significantly dilated bowel loops. <Electronically signed by Herbert Lopez > 02/19/21 [id number]
[2021-02-19 14:00] VITALS: BP 134/70
--- NOTE | 2021-02-19 15:04 | IPNPDOC ---
Text Note Date of Service The patient was seen on 02/19/21. NOTE Subjective Pt was seen at bedside this morning and is overall feeling better. Around 3am she c/o SOB, chest discomfort and tingling in her fingers, all of which were relieved by antiemetic and oxygen. This morning, pt c/o mild AMBRIZ, but nausea has improved and RUQ pain decreased to 4/10. She had a small loose bowel movement early this morning, but has not passed gas. Denies current SOB, constipation, chest pain, hematuria. Objective Gen: Pt is more comfortable sitting up then prior. Psych: A+Ox3 HEENT: no cervical lymphadenopathy. RESP: CTA b/l, no wheeze, crackles, or rhonchi. CVS: RRR, no murmur. ABD: RUQ tender to deep palpation w mild guarding. Mild distension has decreased since yesterday. MSK: plantarflexion 5/5 b/l. SKIN: No edema. Imaging Abdominal X-ray Upright (02/19) Reported as- Nonspecific bowel gas pattern. No radiographic evidence of significantly dilated bowel loops. Abdomen,Flat Plate KUB (02/17) One nonspecific gas pattern. There are no dilated loops, masses or signs of obstruction. Few pelvic phleboliths noted. No definite evidence for urinary tract calcifications. CT ABD/PEL W/IV CONTRAST (02/16) Reported as- A segment of distal ileum is thickened compatible with enteritis/ileitis. Mild dilatation of several small bowel loops immediately proximal to this suggesting a partial small bowel obstruction. Mild free fluid in the pelvis. Sigmoid diverticulosis without acute diverticulitis. Abdomen US (02/16) Negative right upper quadrant ultrasound. Assessment Pt is a 60yo F w PMHx of migraines, diverticulosis, DJD, transverse myelitis, and H. pylori (2008). She presented yesterday afternoon w 3 day Hx of RUQ pain, nausea, and constipation. On initial evaluation she was hypertensive with systolic pressure of 164, but was afebrile, with no leukocytosis or LFT abnormal ities. Imaging yesterday showed evidence of distal SB inflammation, with proximal dilation, and partial SBO could not be ruled out. Pt was admitted for sx management and further evaluation. Plan 1. RUQ Pain Imaging today did not show any air fluid levels or distended bowel loops. Patient has had 2 bowel mvmts, but has not yet passed gas. Pt was NPO overnight, but since pain is improving she will now be placed on full liquid diet, and we will assess how she tolerates this. Patients pain has decreased and has not needed any morphine or [place] since 02/17. For prophylaxis, she is on ciprofloxacin (day 3) and metronidazole (day 3). 2. Giardiasis Giardia lambia was found on stool panel today. Pt was already on metronidazole (day 3) which covers this, and we will continue for 2 more days. 3. Hypokalemia Potassium this morning low at 3.6. We gave 40meq KCl PO. We will continue to monitor K and Mg. 4. SOB overnight Pt is sating well and has been decreased from 2L to 0.5L O2 by nasal cannula. Her SOB resolved after O2 nasal canula initiation. Troponin and EKG done overnight were negative. 5. Nausea We are giving Ondansetron 4mg IV Q6H PRN and Phenergan 12.5mg IV Q6H PRN. 6. Reflux/Dyspepsia We are giving Protonix 40mg IV daily and Mylanta 30ml daily PO PRN. 7. Constipation/Gas pain For sx management we will continue: Colace 100mg PO BID. Mylicon 80mg Q6HP PO PRN for gas pain. MgOH 30ml daily PO PRN for constipation. 8. DJD, chronic back pain We are managing symptoms by continuing home doses of Gabapentin 600mg PO TID and Baclofen 20mg PO TID. 9. Difficulty sleeping We will continue home dose of Seroquel 50mg QHS PO. 10. DVT Prophylaxis We are giving Heparin SC. Disposition: If the patient passes gas and she has symptom resolution, she may be ready for discharge tomorrow. VS,Fishbone, I+O VS, Fishbone, I+O Laboratory Tests 02/19/21 06:23 Vital Signs Date Time Temp Pulse Resp B/P (MAP) Pulse Ox O2 Delivery O2 Flow Rate FiO2 02/19/21 06:00 97.2 54 16 136/75 (95) 100 Nasal Cannula 2.0 I&O- Last 24 Hours up to 6 AM 02/19/21 06:00 Intake Total 2150 ml Output Total 2650 ml Balance -500 ml AMMON CHACKO OMS-3 Feb 19, 2021 15:04
[2021-02-19 15:40] LABS: Chitobioside Carbohydrat (ACCA 64 units (0-90); Laminaribioside Carbohyd (ALCA 4 units (0-60); Mannobioside Carbohydrat (AMCA 28 units (0-100); Saccharomyces cerevisiae IgG A 1 units (0-50)
[2021-02-19] MEDS: QUEtiapine FUMARATE 50MG TAB PO SCH (21:48)
[2021-02-19 22:00] VITALS: BP_SYST 141; BP_SYST 167; BP_DIAS 72; BP_DIAS 77
[2021-02-20] MEDS: D5W/0.45% SODIUM CHLORIDE 1,000 ML IV SCH ×2 (03:15→10:14)
[2021-02-20] MEDS: ONDANSETRON 4MG/2ML VIAL IV SCH ×2 (04:08→10:12)
[2021-02-20] MEDS: metroNIDAZOLE 500 MG in IV 1 EA IV SCH ×3 (04:08→14:41)
[2021-02-20] MEDS: NORCO, ANEXSIA 5/325MG TABLET (HYDROcodone/ACETAMINOPHEN) PO PRN ×2 (04:15→16:27)
[2021-02-20 06:00] VITALS: BP 110/60
[2021-02-20 06:49] LABS: HEMATOCRIT 35.1 % (36.0-47.0); HEMOGLOBIN 11.6 g/dl (12.0-15.5); MEAN CORPUSCULAR HEMOGLOBIN 30.4 pg (27.0-33.0); MEAN CORPUSCULAR VOLUME 91.9 fl (80.0-96.0); PLATELET COUNT, AUTOMATED 262 10^3/uL (150-450); RED BLOOD COUNT 3.82 10^6/uL (4.00-5.40); WHITE BLOOD COUNT 3.9 10^3/uL (4.0-10.0)
[2021-02-20 07:17] LABS: ALBUMIN 3.3 GM/DL (3.2-5.2); ALT/SGPT 23 U/L (12-78); BILIRUBIN,TOTAL 0.3 MG/DL (0.2-1.0); BLOOD UREA NITROGEN 2 MG/DL (7-18); CALCIUM LEVEL 8.4 MG/DL (8.8-10.2); CARBON DIOXIDE LEVEL 32 MEQ/L (21-32); CHLORIDE LEVEL 107 MEQ/L (98-107); CREATININE FOR GFR 0.81 MG/DL (0.55-1.30); GLOMERULAR FILTRATION RATE > 60.0 (>45); GLUCOSE, FASTING 113 MG/DL (70-100); POTASSIUM SERUM 3.8 MEQ/L (3.5-5.1); SODIUM LEVEL 142 MEQ/L (136-145); TOTAL PROTEIN 6.2 GM/DL (6.4-8.2)
[2021-02-20] MEDS: HEPARIN SOD (PORCINE) 5000UNITS/ML 1ML VIAL/SYRINGE SQ SCH ×2 (10:12→20:28)
[2021-02-20] MEDS: PANTOPRAZOLE 40MG VIAL (C9113 PER 1) IV SCH (10:12)
[2021-02-20] MEDS: BACLOFEN 10 MG TAB PO SCH ×3 (10:13→20:27)
[2021-02-20] MEDS: DOCUSATE SODIUM 100MG CAPSULE PO SCH ×2 (10:13→20:28)
[2021-02-20] MEDS: GABAPENTIN 300 MG CAP PO SCH ×3 (10:13→20:27)
[2021-02-20] MEDS: CIPROFLOXACIN 400 MG in IV 1 EA IV SCH (11:20)
--- NOTE | 2021-02-20 12:36 | DS.PDOC ---
Discharge Summary General Date of Admission Feb 16, 2021 at 19:09 Attending Physician: DARIN ISABEL DO Discharge Summary PROCEDURES PERFORMED DURING STAY: None. ADMITTING DIAGNOSES: Partial small bowel obstruction Diverticulitis Migraine H. pylori in the past Degenerative joint disease Hypertension DISCHARGE DIAGNOSES: Diverticulitis Migraine H. pylori in the past Degenerative joint disease Hypertension COMPLICATIONS/CHIEF COMPLAINT: Enteritis. HISTORY OF PRESENT ILLNESS: 60-year-old female presented to the emergency room on February 16, 2021 with nausea right upper quadrant pain, loose bowel stools for 1 day, generalized weakness and constipation. On initial evaluation patient was hypertensive, and imaging in the ED showed she had distal small bowel inflammation, proximal dilatation, partial small bowel obstruction. She was admitted to the hospitalist service for further management and treatment. HOSPITAL COURSE: 62-year-old female who was admitted for partial small bowel obstruction. Patient was initially started on empirical antibiotics metronidazole and ciprofloxacin. Patient was kept n.p.o. for the first 48 hours. Her pain was managed with morphine and [place]. Patient gradually had pain improvement and with the pain medication and antibiotics. Patient had a bowel movement day before yesterday, but reports she did not pass gas. She did get repeated abdominal x-rays which did not show any air-fluid level or increased inflammation. Her pain has gradually resolved. And had nausea decreased. She was advanced to full liquid diet yesterday evening. Yesterday night patient reports she had passed gas at around 4:30 AM. Today morning her diet was advanced to regular diet. Patient had a stool panel done which showed that she was having giardiasis [she is already getting Flagyl] DISCHARGE MEDICATIONS: Please see below. ALLERGIES: Please see below. PHYSICAL EXAMINATION ON DISCHARGE: VITAL SIGNS: Please see below. General: Patient was sitting in bed, appears to be comfortable. Cardiac: S1-S2 normal, no murmurs appreciated. Respiration: Bilateral clear breath sounds, no wheezes or crackles appreciated. Abdomen: Patient reports having mild medial right upper quadrant pain on palpation, no distention, rest of the abdomen is soft, no pain on touch. Extremities: No pedal edema appreciated. LABORATORY DATA: Please see below. IMAGING: Imaging Abdominal X-ray Upright (02/19) Reported as- Nonspecific bowel gas pattern. No radiographic evidence of significantly dilated bowel loops. Abdomen,Flat Plate KUB (02/17) One nonspecific gas pattern. There are no dilated loops, masses or signs of obstruction. Few pelvic phleboliths noted. No definite evidence for urinary tract calcifications. CT ABD/PEL W/IV CONTRAST (02/16) Reported as- A segment of distal ileum is thickened compatible with enteritis/ileitis. Mild dilatation of several small bowel loops immediately proximal to this suggesting a partial small bowel obstruction. Mild free fluid in the pelvis. Sigmoid diverticulosis without acute diverticulitis. Abdomen US (02/16) Negative right upper quadrant ultrasound. PROGNOSIS: Good ACTIVITY: as tolerated . DIET: Regular diet DISCHARGE PLAN: Home DISPOSITION: Home. DISCHARGE INSTRUCTIONS: 1. Continue taking metronidazole for 2 more days. 2. Follow-up with PCP in 1 week. 3. Continue taking more fibrous diet to prevent constipation. ITEMS TO FOLLOWUP ON ON OUTPATIENT: 1. Follow-up with PCP in 1 week. DISCHARGE CONDITION: Stable. TIME SPENT ON DISCHARGE: 30 minutes. Vital Signs/I&Os Vital Signs Date Time Temp Pulse Resp B/P (MAP) Pulse Ox O2 Delivery O2 Flow Rate FiO2 02/20/21 04:45 14 02/19/21 22:00 98.7 55 167/72 (103) 100 Room Air 02/19/21 06:00 2.0 I&O- Last 24 Hours up to 6 AM 02/20/21 06:00 Intake Total 3080 ml Output Total 1300 ml Balance 1780 ml Laboratory Data Labs 24H Laboratory Tests 2 02/20/21 06:34: Nucleated Red Blood Cells % (auto) 0.0, Anion Gap 3L, Glomerular Filtration Rate > 60.0, Calcium Level 8.4L, Total Bilirubin 0.3, Aspartate Amino Transf (AST/SGOT) 26, Alanine Aminotransferase (ALT/SGPT) 23, Alkaline Phosphatase 50, Total Protein 6.2L, Albumin 3.3, Albumin/Globulin Ratio 1.1L CBC/BMP Laboratory Tests 02/20/21 06:34 Microbiology Microbiology 02/18/21 Gastrointestinal Tract Panel (PCR) - Final, Complete Giardia Lamblia Sp 02/16/21 Respiratory Virus Panel (PCR) (TIARA) - Final, Complete Discharge Medications Scheduled Baclofen (Baclofen) 20 Mg Tab, 20 MG PO TID, (Reported) Ciprofloxacin HCl (Cipro) 500 Mg Tablet, 500 MG PO BID@ Gabapentin (Neurontin) 300 Mg Cap, 600 MG PO TID, (Reported) Metronidazole (Flagyl) 500 Mg Tablet, 500 MG PO Q8H Quetiapine Fumarate (Quetiapine Fumarate) 100 Mg Tablet, 50 MG PO QHS, (Reported) Scheduled PRN Baclofen (Baclofen) 20 Mg Tablet, 20 MG PO DAILY PRN for SPASMS, (Reported) Hydrocodone/Acetaminophen (Hydrocodone-Acetamin 10-325 mg) 1 Each Tablet, 1 TAB PO Q4H PRN for PAIN LEVEL 5-10, (Reported) Ondansetron HCl (Zofran) 4 Mg Tablet, 4 MG PO BID PRN for MIGRAINE, (Reported) Rizatriptan Benzoate (Rizatriptan) 10 Mg Tab.rapdis, 10 MG SL BID PRN for MIGRAINE, (Reported) Allergies Coded Allergies: Penicillins (Verified Allergy, Intermediate, swelling, 02/16/21) aspirin (Verified Allergy, Intermediate, swelling, 02/16/21) Sulfa (Sulfonamide Antibiotics) (Verified Adverse Reaction, Intermediate, "sick", 02/16/21) Noemy Malloy MD Feb 20, 2021 12:36
[2021-02-20 14:00] VITALS: BP 151/87
[2021-02-20] MEDS: metroNIDAZOLE (FLAGYL) 500MG TABLET PO SCH ×2 (16:26→23:55)
[2021-02-20] MEDS: CIPROFLOXACIN 500MG TABLET PO SCH (18:33)
[2021-02-20] MEDS: ONDANSETRON 4 MG TAB PO SCH ×2 (18:33→23:55)
--- NOTE | 2021-02-20 18:41 | ECGEPIP ---
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 [place] is now normal. Electronically Signed on 02-20-2021 18:41:16 EDT by Elian Maciel
--- NOTE | 2021-02-20 19:42 | IPNPDOC ---
Text Note Date of Service The patient was seen on 02/20/21. NOTE Subjective: Patient was seen and examined at bedside. Patient reports she has passed gas early in the morning at 4:30 AM. She was advanced to regular diet from today morning. However patient did not pass gas or have a bowel movement after the oral feeding. Patient did complain of some nausea and mild discomfort after eating. No nausea, increased in abdominal pain, distention after oral intake. Patient will need to have a bowel movement prior to sending her home. She denies having any headache, chest pain, palpitations, shortness of breath, vomiting, diarrhea. Objective: Physical exam: General: Patient is comfortable sitting in bed. She reports she even had walked in the hallway yesterday. Cardiac: S1 and S2 normal, regular rate and rhythm. Respiration: Clear breath sounds bilaterally, no crackles or wheezes appreciated. Abdomen: Patient has tenderness in the medial side of right upper quadrant scaling 3/10. Rest of the abdomen is soft, nondistended, no tenderness on palpation. Positive bowel sounds appreciated throughout. Extremity: No pedal edema appreciated. Imaging Abdominal X-ray Upright (02/19) Reported as- Nonspecific bowel gas pattern. No radiographic evidence of significantly dilated bowel loops. Abdomen,Flat Plate KUB (02/17) One nonspecific gas pattern. There are no dilated loops, masses or signs of obstruction. Few pelvic phleboliths noted. No definite evidence for urinary tract calcifications. CT ABD/PEL W/IV CONTRAST (02/16) Reported as- A segment of distal ileum is thickened compatible with enteritis/ileitis. Mild dilatation of several small bowel loops immediately proximal to this suggesting a partial small bowel obstruction. Mild free fluid in the pelvis. Sigmoid diverticulosis without acute diverticulitis. Abdomen US (02/16) Negative right upper quadrant ultrasound. Assessment Pt is a 60yo F w PMHx of migraines, diverticulosis , DJD, transverse myelitis, and H. pylori (2008). Patient presented to the emergency department on 02/16/2021 with complaining of 3-day history of right upper quadrant pain, na usea, constipation. Initial imaging in the ED showed she had distal small bowel inflammation, partial small bowel obstruction. In the ED she even was hypotensive on presentation. Patient was admitted to hospitalist service for further evaluation and management. Plan # partial small bowel obstruction: -Patient was kept n.p.o. from the day of admission for 2 days. She was started on prophylactically ciprofloxacin and metronidazole. Today would be day 4. -Later she was switched to full liquid diet as her nausea and vomiting along with decrease in pain. -Patient tolerated full liquid diet yesterday. -Overnight she has passed gas and her diet was advanced to regular diet. -However patient now has not passed gas or have a bowel movement after switch to regular diet. She only reports having mild nausea. -Initially her pain was controlled by [place] and morphine but she only needed it for 1 day. -Patient was switched to p.o. antibiotics today. # Giardiasis Giardia lambia was found on stool panel today. Pt was already on metronidazole day 4. A total of 5 days of metronidazole should be sufficient. # Nausea Ondansetron 4 mg orally as needed # Reflux/Dyspepsia We are giving Protonix 40mg IV daily and Mylanta 30ml daily PO PRN. # DJD, chronic back pain: -Continue home gabapentin and baclofen # Difficulty sleeping Continue home dose of Seroquel #DVT Prophylaxis On heparin 5000 units subcu Disposition: If patient has a bowel movement overnight or tomorrow she can be sent home on 1 day dose of metronidazole given that she already got 4 days of metronidazole. IPhilip, , have independently examined this patient and performed my own physical exam, as well as reviewed the documentation and edited where necessary. I have discussed in detail with the resident / student the findings and plan of treatment as documented by the resident / student and edited their note. I agree with their findings and treatment plan and have edited their documentation. I will continue to follow the patient during this hospital stay. VS,Fishbone, I+O VS, Fishbone, I+O Laboratory Tests 02/20/21 06:34 Vital Signs Date Time Temp Pulse Resp B/P (MAP) Pulse Ox O2 Delivery O2 Flow Rate FiO2 02/20/21 16:57 16 02/20/21 14:00 97.8 77 151/87 (108) 97 Room Air 02/19/21 06:00 2.0 I&O- Last 24 Hours up to 6 AM 02/20/21 06:00 Intake Total 3080 ml Output Total 1300 ml Balance 1780 ml Noemy Malloy MD Feb 20, 2021 19:42 PHILIP ISABEL DO Feb 21, 2021 19:31
[2021-02-20] MEDS: QUEtiapine FUMARATE 50MG TAB PO SCH (20:28)
[2021-02-20 22:00] VITALS: BP 136/84
[2021-02-21] MEDS: CIPROFLOXACIN 500MG TABLET PO SCH (05:55)
[2021-02-21] MEDS: ONDANSETRON 4 MG TAB PO SCH (05:55)
[2021-02-21 06:00] VITALS: BP 109/63
[2021-02-21 07:21] LABS: HEMATOCRIT 33.1 % (36.0-47.0); HEMOGLOBIN 10.9 g/dl (12.0-15.5); MEAN CORPUSCULAR HEMOGLOBIN 30.2 pg (27.0-33.0); MEAN CORPUSCULAR HGB CONC 32.9 g/dl (32.0-36.5); MEAN CORPUSCULAR VOLUME 91.7 fl (80.0-96.0); PLATELET COUNT, AUTOMATED 249 10^3/uL (150-450); RED BLOOD COUNT 3.61 10^6/uL (4.00-5.40); WHITE BLOOD COUNT 3.7 10^3/uL (4.0-10.0)
[2021-02-21 07:51] LABS: ALBUMIN 2.8 GM/DL (3.2-5.2); ALT/SGPT 27 U/L (12-78); BILIRUBIN,TOTAL 0.2 MG/DL (0.2-1.0); BLOOD UREA NITROGEN 7 MG/DL (7-18); CALCIUM LEVEL 8.5 MG/DL (8.8-10.2); CARBON DIOXIDE LEVEL 30 MEQ/L (21-32); CHLORIDE LEVEL 109 MEQ/L (98-107); GLOMERULAR FILTRATION RATE > 60.0 (>45); GLUCOSE, FASTING 92 MG/DL (70-100); POTASSIUM SERUM 3.4 MEQ/L (3.5-5.1); SODIUM LEVEL 145 MEQ/L (136-145); TOTAL PROTEIN 5.5 GM/DL (6.4-8.2)
[2021-02-21] MEDS: HEPARIN SOD (PORCINE) 5000UNITS/ML 1ML VIAL/SYRINGE SQ SCH (08:22)
[2021-02-21] MEDS: metroNIDAZOLE (FLAGYL) 500MG TABLET PO SCH (08:22)
[2021-02-21] MEDS: GABAPENTIN 300 MG CAP PO SCH (09:00)
[2021-02-21] MEDS ORDERED: PANTOPRAZOLE 40MG TAB (PROTONIX) PO SCH (09:00)
[2021-02-21] MEDS: BACLOFEN 10 MG TAB PO SCH (09:00)
[2021-02-21] MEDS: DOCUSATE SODIUM 100MG CAPSULE PO SCH (09:00)
[2021-02-21] MEDS ORDERED: FLAG500T PO (09:11)
[2021-02-21] MEDS ORDERED: CIPR-249 PO (09:11)
[2021-02-21] MEDS ORDERED: POTASSIUM CHLORIDE 10 MEQ SR TABLET PO SCH (10:00)
--- NOTE | 2021-02-21 18:58 | DS.PDOC ---
Discharge Summary General Date of Admission Feb 16, 2021 at 19:09 Date of Discharge 02/21/2021 Primary Care Physician: Curtis Garcia MD Attending Physician: DARIN ISABEL DO Discharge Summary PROCEDURES PERFORMED DURING STAY: None. ADMITTING DIAGNOSES: 1. Acute enteritis/colitis. 2. Hypertension 3. History of migraines 4. Degenerative joint disease DISCHARGE DIAGNOSES: 1. Acute enteritis/colitis. 2. Hypertension 3. History of migraines 4. Degenerative joint disease COMPLICATIONS/CHIEF COMPLAINT: Enteritis. HISTORY OF PRESENT ILLNESS: Patient is a 60-year old female who presented with right upper quadrant pain since 02/14/2021 with 1 episode of green- colored loose bowel movement the day prior. Patient states that she has had some burping while eating a cheeseburger and then she came down with a right upper quadrant pain and constant nausea. Patient reports no one else has similar symptoms where the same thinners her. Patient reports she still has her gallbladder. Patient denies heartburn but describes a burping sensation with pressure pain in the right upper quadrant. Patient is afebrile without leukocytosis or elevated LFTs upon presentation. General surgery on-call reviewed the CT of the abdomen.think the patient had a partial small bowel obstruction. Patient was admitted for possible enteritis. HOSPITAL COURSE: Patient was started on ciprofloxacin and Flagyl. Patient continues to have nausea. Patient's diet was advanced slowly. On 02/20/2021, patient had a regular diet but did have some increased abdominal pain and nausea. Patient was found to have Giardia on GI panel that was performed. Patient denied any history of swimming in lakes or [place] or going camping and drinking untreated tap water. Patient denies anyone else in her family having any other symptoms. Patient was doing well and began to have liquid bowel movements that began to become more solid. Patient was passing gas as well. Patient was deemed ready for discharge in the morning of 02/21/2021 it was discharged home from the hospital. DISCHARGE MEDICATIONS: Please see below. ALLERGIES: Please see below. PHYSICAL EXAMINATION ON DISCHARGE: VITAL SIGNS: Please see below. General: Alert and oriented female patient who was sitting in bed when I walked in. Patient was walking the halls earlier in the morning. Patient did not appear to be in any acute distress. HEENT: Normocephalic, atraumatic, moist mucous membranes. Neck: No lymphadenopathy or thyromegaly Cardiac: Regular rate and rhythm, no murmurs, normal S1, normal S2 Pulm: Clear to auscultation bilaterally. No wheezes, rhonchi, rales Abd: Nondistended, nontender to palpation, normal bowel sounds Ext: No edema bilateral lower extremities LABORATORY DATA: Please see below. IMAGING: Right upper quadrant ultrasound formed on 02/16/2021 is reported show ne gative right upper quadrant ultrasound. CT of the abdomen pelvis with IV contrast only performed on 02/16/2021 was reported to show a segment of the distal ileum is thickened compatible with enteritis/ileitis. Mild agitation of the several small bowel loops immediately proximal to this suggesting a partial small bowel obstruction. Mild free fluid in the pelvis. Sigmoid diverticulosis without acute diverticulitis. KUB flatplate of the abdomen performed on 02/17/2021 was reported to show 1 nons pecific gas pattern. There are no dilated loops, masses or signs of obstruction. Few pelvic phleboliths noted. No definite evidence for urinary tract calcification. Bones with only minimal degenerative change at L5-S1 otherwise unremarkable. Abdominal flatplate performed on 02/19/2021 is reported to show nonspecific bowel gas pattern. No radiographic evidence of significantly dilated bowel loops. PROGNOSIS: Good ACTIVITY: As tolerated. DIET: Brat diet and advance diet as tolerated DISCHARGE PLAN: Discharge home DISPOSITION: 01 Home, Self-Care. DISCHARGE INSTRUCTIONS: 1. Follow-up with your primary care provider within 3 to 5 days discharge. 2. Return to the ED if symptoms worsen ITEMS TO FOLLOWUP ON ON OUTPATIENT: 1. Follow-up on patient's diarrhea. DISCHARGE CONDITION: Stable. TIME SPENT ON DISCHARGE: 35 minutes. Vital Signs/I&Os Vital Signs Date Time Temp Pulse Resp B/P (MAP) Pulse Ox O2 Delivery O2 Flow Rate FiO2 02/21/21 06:00 98.0 64 16 109/63 (78) 95 Room Air 02/19/21 06:00 2.0 I&O- Last 24 Hours up to 6 AM 02/21/21 06:00 Intake Total 1590 ml Output Total 1150 ml Balance 440 ml Laboratory Data Labs 24H Laboratory Tests 2 02/21/21 06:44: Nucleated Red Blood Cells % (auto) 0.0, Anion Gap 6L, Glomerular Filtration Rate > 60.0, Calcium Level 8.5L, Total Bilirubin 0.2, Aspartate Amino Transf (AST/SGOT) 31, Alanine Aminotransferase (ALT/SGPT) 27, Alkaline Phosphatase 47, Total Protein 5.5L, Albumin 2.8L, Albumin/Globulin Ratio 1.0L CBC/BMP Laboratory Tests 02/21/21 06:44 Microbiology Microbiology 02/18/21 Gastrointestinal Tract Panel (PCR) - Final, Complete Giardia Lamblia Sp 02/16/21 Respiratory Virus Panel (PCR) (TIARA) - Final, Complete Discharge Medications Scheduled Baclofen (Baclofen) 20 Mg Tab, 20 MG PO TID, (Reported) Ciprofloxacin HCl (Cipro) 500 Mg Tablet, 500 MG PO BID@ Gabapentin (Neurontin) 300 Mg Cap, 600 MG PO TID, (Reported) Metronidazole (Flagyl) 500 Mg Tablet, 500 MG PO Q8H Quetiapine Fumarate (Quetiapine Fumarate) 100 Mg Tablet, 50 MG PO QHS, (Re ported) Scheduled PRN Baclofen (Baclofen) 20 Mg Tablet, 20 MG PO DAILY PRN for SPASMS, (Reported) Hydrocodone/Acetaminophen (Hydrocodone-Acetamin 10-325 mg) 1 Each Tablet, 1 TAB PO Q4H PRN for PAIN LEVEL 5-10, (Reported) Ondansetron HCl (Zofran) 4 Mg Tablet, 4 MG PO BID PRN for MIGRAINE, (Reported) Rizatriptan Benzoate (Rizatriptan) 10 Mg Tab.rapdis, 10 MG SL BID PRN for MIGRAINE, (Reported) Allergies Coded Allergies: Penicillins (Verified Allergy, Intermediate, swelling, 02/16/21) aspirin (Verified Allergy, Intermediate, swelling, 02/16/21) Sulfa (Sulfonamide Antibiotics) (Verified Adverse Reaction, Intermediate, "sick", 02/16/21) DARIN ISABEL DO Feb 21, 2021 18:57
== END 2021-02-21 10:50 | disposition home or self-care (01) | DRG 248 ==
LOC: M ED 10:38 → M ED INP 19:09 → M MSPAV 22:08
PROVIDERS: ADMIT General Practice; ATTEND Family Medicine
DX: A07.1 Giardiasis [lambliasis] (principal); I10 Essential (primary) hypertension; E87.6 Hypokalemia; G43.909 Migraine, unspecified, not intractable, without status migrainosus; M19.90 Unspecified osteoarthritis, unspecified site; K57.30 Diverticulosis of large intestine without perforation or abscess without bleeding; Z79.899 Other long term (current) drug therapy; Z88.0 Allergy status to penicillin; Z88.6 Allergy status to analgesic agent; Z88.2 Allergy status to sulfonamides

== ENCOUNTER → 2021-07-28 | Outpatient (CLI) | payer OTHER ==
[~2021-07-28] MED LIST changes: +CIPR-249 PO; +FLAG500T PO; +HYDR-3719 PO; +QUET100T2 PO; +RIZA10TA58 SL; +ZOFR4TAB16 PO
== END ==
LOC: M LABSMTC 09:51
PROVIDERS: ATTEND Internal Medicine Cardiovascular Disease
DX: R94.39 Abnormal result of other cardiovascular function study (principal); R07.89 Other chest pain

== ENCOUNTER → 2021-07-28 | Outpatient (CLI) | payer OTHER ==
[2021-07-28 12:43] LABS: BASO # 0.1 10^3/uL (0.0-0.2); BASO % 1.7 % (0.0-1.0); EOS # 0.3 10^3/uL (0.0-0.5); EOS % 6.4 % (0.0-3.0); HEMATOCRIT 34.8 % (36.0-47.0); LYMPH # 1.3 10^3/uL (1.5-5.0); LYMPH % 27.1 % (24.0-44.0); MEAN CORPUSCULAR HEMOGLOBIN 29.8 pg (27.0-33.0); MEAN CORPUSCULAR HGB CONC 31.6 g/dl (32.0-36.5); MEAN CORPUSCULAR VOLUME 94.3 fl (80.0-96.0); MONO # 0.4 10^3/uL (0.0-0.8); MONO % 9.1 % (2.0-8.0); NEUTROPHILS # 2.6 10^3/uL (1.5-8.5); NEUTROPHILS % 54.6 % (36.0-66.0); PLATELET COUNT, AUTOMATED 345 10^3/uL (150-450); RED BLOOD COUNT 3.69 10^6/uL (4.00-5.40); WHITE BLOOD COUNT 4.7 10^3/uL (4.0-10.0)
[2021-07-28 13:05] LABS: CALCIUM LEVEL 9.1 MG/DL (8.8-10.2); CREATININE FOR GFR 1.01 MG/DL (0.55-1.30); GLOMERULAR FILTRATION RATE 58.9 (>45); POTASSIUM SERUM 5.1 MEQ/L (3.5-5.1)
== END ==
LOC: M WUC 10:37
PROVIDERS: ATTEND Internal Medicine Cardiovascular Disease
DX: R94.39 Abnormal result of other cardiovascular function study (principal); R07.9 Chest pain, unspecified

== ENCOUNTER → 2023-05-05 | Outpatient (REF) | payer OTHER, MEDICAID ==
[~2023-05-05] MED LIST changes: -GABA-283 PO; +GABA-284 PO
== END ==
LOC: M WUC 19:17
PROVIDERS: ATTEND Physician Assistant
DX: R30.0 Dysuria (principal)

== ENCOUNTER 2024-01-26 08:52 | Emergency (ER) | payer OTHER, MEDICARE ==
[~2024-01-26] VITALS: Ht 175.3 cm; Wt 91.0 kg
[2024-01-26] MEDS ORDERED: DIVA250T67 (09:34)
[2024-01-26] MEDS ORDERED: CARV6.25 (09:34)
[2024-01-26] MEDS ORDERED: CHLO125TA (09:34)
[2024-01-26] MEDS: ONDANSETRON 4MG ORAL DISINTEGRATING TAB PO ONE (12:13)
[2024-01-26] MEDS: NORCO, ANEXSIA 5/325MG TABLET (HYDROcodone/ACETAMINOPHEN) PO ONE (12:14)
[2024-01-26] MEDS: CYCLOBENZAPRINE 10MG TABLET PO ONE (12:55)
[2024-01-26] MEDS ORDERED: CYCL-707 PO (13:03)
[2024-01-26 13:18] VITALS: BP 141/89; TEMP 97.2; O2SAT 97
== END 2024-01-26 13:32 | disposition home or self-care (01) ==
LOC: M ED 08:52
DX: S13.4XXA Sprain of ligaments of cervical spine, initial encounter (principal); V43.52XA Car driver injured in collision with other type car in traffic accident, initial encounter; Y92.410 Unspecified street and highway as the place of occurrence of the external cause; Y93.9 Activity, unspecified; Y99.9 Unspecified external cause status; Z79.899 Other long term (current) drug therapy; Z88.0 Allergy status to penicillin; Z88.2 Allergy status to sulfonamides; Z88.8 Allergy status to other drugs, medicaments and biological substances

== ENCOUNTER → 2024-09-16 | Outpatient (CLI) | payer MEDICARE, MEDICAID ==
[~2024-09-16] MED LIST changes: -AMIT24CA7 PO; +CARV6.25; +CHLO125TA; +CYCL-707 PO; +DIVA250T67; +ISOVUE-300 61% 100ML VIAL As Ordered ONE; +LIDOCAINE 1% MDV 20ML VIAL As Ordered ONE; +LUBI24CA32 PO; +methylPREDNISolone SUSP 40MG/ML 1ML VIAL (DEPO MEDROL) As Ordered ONE
== END ==
LOC: M RAD 13:12
PROVIDERS: ATTEND Physician Assistant Surgical
DX: M16.0 Bilateral primary osteoarthritis of hip (principal)
CPT/HCPCS: 20610; 77002; J1010; Q9967

== ENCOUNTER → 2024-10-24 | Outpatient (CLI) | payer MEDICARE, MEDICAID ==
[~2024-10-24] MED LIST changes: -ISOVUE-300 61% 100ML VIAL As Ordered ONE; -LIDOCAINE 1% MDV 20ML VIAL As Ordered ONE; -methylPREDNISolone SUSP 40MG/ML 1ML VIAL (DEPO MEDROL) As Ordered ONE
== END ==
LOC: M WUC 09:04
PROVIDERS: ATTEND Nurse Practitioner Family
DX: R05.9 Cough, unspecified (principal)

== ENCOUNTER → 2025-02-06 | Outpatient (CLI) | payer MEDICARE, MEDICAID ==
[~2025-02-06] MED LIST changes: +ISOVUE-300 61% 100 ML VIAL As Ordered ONE; +LIDOCAINE 1% MDV 20 ML VIAL As Ordered ONE; +methylPREDNISolone SUSP 40 MG/ML 1 ML VIAL As Ordered ONE
== END ==
LOC: M RAD 14:46
PROVIDERS: ATTEND Physician Assistant Surgical
DX: M16.0 Bilateral primary osteoarthritis of hip (principal)
CPT/HCPCS: 20610; 77002; J1010; Q9967

== ENCOUNTER → 2025-02-22 | Outpatient (REF) | payer MEDICARE, MEDICAID ==
[~2025-02-22] MED LIST changes: -ISOVUE-300 61% 100 ML VIAL As Ordered ONE; -LIDOCAINE 1% MDV 20 ML VIAL As Ordered ONE; -methylPREDNISolone SUSP 40 MG/ML 1 ML VIAL As Ordered ONE
== END ==
LOC: M LAB REF 19:48
PROVIDERS: ATTEND Student in an Organized Health Care Education/Training Program
DX: R30.0 Dysuria (principal)

== ENCOUNTER → 2025-03-13 | Outpatient (CLI) | payer MEDICARE, MEDICAID | LOC: M EKG 10:20 | PROVIDERS: ATTEND Physician Assistant | DX: R00.2 Palpitations (principal) ==

== ENCOUNTER → 2025-03-18 | Outpatient (REF) | payer MEDICARE, MEDICAID | LOC: M LAB REF 14:46 | PROVIDERS: ATTEND Nurse Practitioner Family | DX: R30.0 Dysuria (principal) ==

== ENCOUNTER → 2025-05-13 | Outpatient (CLI) | payer MEDICARE, MEDICAID | LOC: M SLEEP HO 11:06 | PROVIDERS: ATTEND Physician Assistant | DX: I27.81 Cor pulmonale (chronic) (principal) ==

== ENCOUNTER → 2025-05-23 | Outpatient (CLI) | payer MEDICARE, MEDICAID ==
[~2025-05-23] MED LIST changes: +ISOVUE-300 61% 100 ML VIAL As Ordered ONE; +LIDOCAINE 1% MDV 20 ML VIAL As Ordered ONE; +methylPREDNISolone SUSP 40 MG/ML 1 ML VIAL As Ordered ONE
== END ==
LOC: M RAD 13:19
PROVIDERS: ATTEND Physician Assistant Surgical
DX: M16.0 Bilateral primary osteoarthritis of hip (principal); R30.0 Dysuria
CPT/HCPCS: 20610; 77002; 87088; 87186; J1010; Q9967

== ENCOUNTER → 2025-05-23 | Outpatient (REF) | payer MEDICARE, MEDICAID ==
[~2025-05-23] MED LIST changes: -ISOVUE-300 61% 100 ML VIAL As Ordered ONE; -LIDOCAINE 1% MDV 20 ML VIAL As Ordered ONE; -methylPREDNISolone SUSP 40 MG/ML 1 ML VIAL As Ordered ONE
== END ==
LOC: M LAB REF 17:09
PROVIDERS: ATTEND Physician Assistant
DX: R30.0 Dysuria (principal)

== ENCOUNTER → 2025-06-19 | Outpatient (CLI) | payer MEDICARE, MEDICAID | LOC: M PLAIMG 10:57 | PROVIDERS: ATTEND Physician Assistant | DX: I27.81 Cor pulmonale (chronic) (principal); I35.2 Nonrheumatic aortic (valve) stenosis with insufficiency; I36.1 Nonrheumatic tricuspid (valve) insufficiency ==